=== PATIENT | male | born 1960 | race African-American/Black ===

== ENCOUNTER 2018-10-23 21:50 | Emergency (ER) | payer SELFPAY ==
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
== END 2018-10-23 22:57 | disposition home or self-care (01) ==
LOC: FB.ED 21:50
DX: T69.9XXA Effect of reduced temperature, unspecified, initial encounter (principal); X31.XXXA Exposure to excessive natural cold, initial encounter
CPT/HCPCS: 99283